=== PATIENT | male | born 1990 | race Two or more races ===

== ENCOUNTER 2016-07-19 23:05 | Emergency (ER) | payer OTHER ==
[~2016-07-19] VITALS: Ht 185.4 cm; Wt 68.0 kg
[2016-07-19 23:28] VITALS: BP 110/62
[2016-07-20] MEDS ORDERED: Bacitracin Oint UD TOPIC ONE (00:15)
[2016-07-20 00:41] VITALS: BP 123/75
[2016-07-20 00:42] VITALS: BP 112/80
--- NOTE | 2016-07-20 05:08 | Emergency Room Report ---
History of Present Illness General Chief Complaint: Laceration Source: Patient Present Illness HPI Patient was getting his proximal right thumb While cutting with a knife just prior to arrival patient has pain 3/10 localized to the lacerated area he also felt a numbness and tingling sensation in the thumb Denies any wrist pain denies any chest pain or shortness of breath patient is up -to-date with immunization shots Allergies: Coded Allergies: No Known Allergies (Unverified , 07/19/16) Patient History Past Medical History: see triage record Pertinent Family History: none Reviewed Nursing Documentation: PMH: Agreed, PSxH: Agreed Nursing Documentation-PMH Past Medical History: No Stated History Review of Systems All Other Systems: negative except mentioned in HPI Physical Exam Vital Signs Date Time Temp Pulse Resp B/P Pulse Ox O2 Delivery O2 Flow Rate FiO2 07/19/16 23:19 98.1 73 16 123/75 100 Room Air Sp02 EP Interpretation: reviewed, normal General Appearance: well appearing, no apparent distress Head: normocephalic, atraumatic Eyes: bilateral eye EOMI, bilateral eye PERRL ENT: normal pharynx Neck: supple Respiratory: lungs clear Cardiovascular #1: regular rate, rhythm Gastrointestinal: non tender, soft Musculoskeletal: normal inspection - Patient is able to make appropriate thumbs up good flexion extension of the thumb itself and good approximation, Neurologic: alert, oriented x3, 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 III-XII nml as tested Skin: other - As above Procedures Laceration/Wound Repair Laceration/Wound Repair : Consent: Verbal Wound Location: upper extremity Wound's Depth, Shape: linear Wound Length (cm): 1 Wound Explored: clean Irrigated w/ Saline (ccs): 200 Betadine Prep?: Yes Anesthesia: 1% Lidocaine Volume Anesthetic (ccs): 3 Wound Debrided: minimal Wound Repaired With: sutures Suture Size/Type: 5:0 Number of Sutures: 3 Layer Closure?: No Sterile Dressing Applied?: Yes Splint Applied?: No Sling Applied?: No Patient Tolerated: Well Complications: None Medical Decision Making Diagnostic Impression: Primary Impression: Laceration ER Course Patient had the laceration repaired as noted above He tolerated the procedure well At this time patient will have close outpatient followup with limited use of the right hand for several days Last Vital Signs Date Time Temp Pulse Resp B/P Pulse Ox O2 Delivery O2 Flow Rate FiO2 07/20/16 00:42 74 16 112/80 100 Room Air 07/20/16 00:41 98.1 Status: improved Disposition: HOME, SELF-CARE Condition: Improved Referrals: NOT CHOSEN IPA/MD,REFERRING (PCP) Patient Instructions: Laceration Care, Adult Additional Instructions: Patient is provided with the discharge instructions notified to follow up with primary doctor in the next 2-3 days otherwise return to the er with any worsening symptoms. Please note that this report is being documented using [employer] technology. This can lead to erroneous entry secondary to incorrect interpretation by the dictating instrument. ANDRZEJ LEROY D.O. July 20, 2016 05:08
== END 2016-07-20 00:45 | disposition home or self-care (01) ==
LOC: EMR 23:55
DX: S61.011A Laceration without foreign body of right thumb without damage to nail, initial encounter (principal); W26.0XXA Contact with knife, initial encounter; Y93.9 Activity, unspecified; Y92.9 Unspecified place or not applicable